=== PATIENT | female | born 1955 | race Caucasian/White ===

== ENCOUNTER 2016-03-27 11:24 | Inpatient (IN) | payer MEDICAID ==
[~2016-03-27] VITALS: Ht 167.6 cm; Wt 69.4 kg
[~2016-03-27 11:24] MED LIST: ALBUTEROL; BACTROBAN 22 GM22 GM TP; BOUDREAUXS113 GM TP; CLARITIN 10 MG10 MG PO; COGENTIN1 MG PO; DEPAKOTE ER500 MG PO; DUONEB 2.5-0.5 M3 ML INH; DUONEB 2.5-0.5 M3 ML NEB; FLORANEX PO; GEODON20 M1 IM; HALDOL DECONATE IM; HALDOL5 MG IM; LACTINEX C1 TAB.CHEW PO; LEVAQUIN500 MG PO; LITHIUM CARBON300 MG PO; PRINIVIL20 MG PO; PROVENTIL/2.5 MG/3 M INH; REQUIP0.25 MG PO; SYNTHROID50 MCG PO; TYLENOL325 MG PO; ZYPREXA20 MG PO
[2016-03-27 12:11] LABS: BASOPHILS 0.1 % (0.0-2.0); EOSINOPHILS 0.1 % (0-7); HEMATOCRIT 46.2 % (36.0-48.0); HEMOGLOBIN 15.3 g/dL (12-16); IMMATURE GRANULOCYTES 0.2 % (0-5); LYMPHOCYTES 17.9 % (15-50); MCH 27.3 pg (26.0-34.0); MCHC 33.1 g/dL (31.0-37.0); MCV 82.5 fL (80.0-100.0); MEAN PLATELET VOLUME 10.8 fL (7.4-10.4); MONOCYTES 6.5 % (2-11); NEUTROPHILS 75.2 % (40-80); PLATELET COUNT 173 10x3/uL (130-400); RDW 14.1 % (11.5-14.5); WBC 9.8 10x3/uL (4.8-10.8)
[2016-03-27 12:29] LABS: ALBUMIN 3.7 g/dL (3.4-5.0); ALKALINE PHOSPHATASE 103 U/L (46-116); ALT (SGPT) 33 U/L (10-68); CALC OSMOLALITY 283 mosm/kg (275-300); CALCIUM 10.1 mg/dL (8.5-10.1); CARBON DIOXIDE 29.5 mmol/L (21.0-32.0); CHLORIDE - SERUM 102 mmol/L (98-107); CREATININE - SERUM 0.8 mg/dL (0.6-1.3); GLUCOSE 99 mg/dL (74-106); POTASSIUM - SERUM 3.3 mmol/L (3.5-5.1); PROTEIN - SERUM 6.8 g/dL (6.4-8.2); SODIUM 141 mmol/L (136-145); UREA NITROGEN 22 mg/dL (7-18); eGFR NON AFRICAN AMERICAN 77 mL/min (90-120)
[2016-03-27 12:30] LABS: VALPROIC ACID (DEPAKOTE) < 3.0 ug/mL (50.0-100.0)
[2016-03-27 12:35] LABS: APPEARANCE CLEAR (CLEAR); BACTERIA FEW /hpf (NONE SEEN); BILIRUBIN NEGATIVE (NEGATIVE); COLOR YELLOW (YELLOW); EPITHELIAL CELLS 0-5 /hpf (0-5); GLUCOSE NEGATIVE (NEGATIVE); KETONE SMALL mg/dL (NEGATIVE); LEUKOCYTE ESTERASE TRACE (NEGATIVE); MUCUS >1+ /lpf (NONE SEEN); NITRITE NEGATIVE (NEGATIVE); PROTEIN 1+ mg/dL (NEGATIVE); SPECIFIC GRAVITY 1.015 (1.005-1.020); UROBILINOGEN NORMAL (NORMAL); WHITE CELLS - URINE 0-5 /hpf (0-5)
[2016-03-27 12:39] LABS: UDS - AMPHET NEGATIVE QUAL (NEGATIVE); UDS - BARB POSITIVE QUAL (NEGATIVE); UDS - BENZO NEGATIVE QUAL (NEGATIVE); UDS - COCAINE NEGATIVE QUAL (NEGATIVE); UDS - METH NEGATIVE QUAL (NEGATIVE); UDS - OPIATE NEGATIVE QUAL (NEGATIVE); UDS - PCP NEGATIVE QUAL (NEGATIVE); UDS - THC NEGATIVE QUAL (NEGATIVE)
[2016-03-28] VITALS (11 sets, daily range): BP systolic 107–148; BP diastolic 43–90; Ht 167.6 cm; Wt 69.4 kg
--- NOTE | 2016-03-28 03:21 | NUR ---
NURSE ROUNDS 19:30 - PT SITTING ON SIDE OF BED, AWAKE, ALERT, CONFUSED, DEMONSTRATES PARANOIA AND DEFENSIVENESS. PT IS DICTATIVE AND REFUSES ANY ASSISTANCE AT THIS TIME. PT REFUSES TO USE O2 VIA NC, AND IS BELIGERENT WHEN APPROACHED. WILL MONITOR CLOSELY.
[2016-03-28] MEDS ORDERED: MYCOSTATIN CREA15 GM TOPICAL (03:54)
[2016-03-28 05:24] LABS: BASOPHILS 0.2 % (0.0-2.0); EOSINOPHILS 0.2 % (0-7); HEMATOCRIT 42.3 % (36.0-48.0); HEMOGLOBIN 13.7 g/dL (12-16); IMMATURE GRANULOCYTES 0.2 % (0-5); MCH 26.4 pg (26.0-34.0); MCHC 32.4 g/dL (31.0-37.0); MCV 81.7 fL (80.0-100.0); MONOCYTES 9.8 % (2-11); NEUTROPHILS 58.6 % (40-80); PLATELET COUNT 180 10x3/uL (130-400); RBC 5.18 10x6/uL (4.00-5.40); WBC 9.8 10x3/uL (4.8-10.8)
[2016-03-28 05:31] LABS: CALCIUM 9.3 mg/dL (8.5-10.1); CARBON DIOXIDE 27.8 mmol/L (21.0-32.0); CHLORIDE - SERUM 99 mmol/L (98-107); CREATININE - SERUM 0.6 mg/dL (0.6-1.3); GLUCOSE 110 mg/dL (74-106); SODIUM 137 mmol/L (136-145); eGFR NON AFRICAN AMERICAN > 90 mL/min (90-120)
[2016-03-28 05:42] LABS: CALC OSMOLALITY 275 mosm/kg (275-300); POTASSIUM - SERUM 2.6 mmol/L (3.5-5.1); UREA NITROGEN 15 mg/dL (7-18)
--- NOTE | 2016-03-28 05:49 | NUR ---
PT HAS BEEN UNCOOPERATIVE MOST OF THIS SHIFT, HAS WANDERED OUT OF HER ROOM X 2, HAS VERBALIZED PHYSICAL THREATS, HAS ACCUSED MY PT ACROSS THE BOYER FROM HER OF CALLING HER ON THE PHONE, PT HAS HALLUCINATED BY STATING THERE ARE PEOPLE IN HER BATHROOM, THEREFORE SHE REFUSES TO USE IT. I DID HAVE TO ADMINISTER GEODON 20MG IM, AND PT IS CURRENTLY RESTING COMFORTABLY, IN NO ACUTE DISTRESS. PT HAS REQUIRED ONE ON ONE SUPERVISION FOR MOST OF THIS SHIFT. WILL CONTINUE TO MONITOR CLOSELY.
--- NOTE | 2016-03-28 07:29 | NUR ---
PT SITTING UP ON SIDE OF THE BED DENIES NEEDS WILL CONT TO MONITOR.
--- NOTE | 2016-03-28 08:02 | NUR ---
HAD TO CALL SHERWIN GÓMEZ FOR PT WANDERING. PT WAS FOUND IN HALLWAY. PT IS IN HER ROOM WITH STREET LIGHT SERVICER HELPER SITTING WITH HER FOR NOW. I HAVE PAGED DR MOYER TO SEE ABOUT WHAT WE NEED TO DO, MAYBE A ORESTES BED?
--- NOTE | 2016-03-28 08:35 | NUR ---
DR MOYER CALLED BACK. ORDERS PLACED. PT TO BE MOVED TO ROOM 5 AND PLACED IN LINDSAY BED.
--- NOTE | 2016-03-28 09:04 | NUR ---
PT MOVED TO ROOM 2105 IN ORESTES BED. PT SLEEPING AT THE MOMENT. NOT GIVING MEDS AT THIS TIME, DUE TO PT BEING COMBATIVE AND SLEEPING. WILL GIVE WHEN PT WAKES UP.
--- NOTE | 2016-03-28 13:52 | NUR ---
PT HAS BEEN VERY COMBATIVE ALL DAY LONG. SHE HAS BEEN HITTING NURSING STAFF, YELLING, CUSSING. AND THREATENING UPON ANYONE WHO ENTERS HER ROOM. TREY SUPPLY ANALYST GOT A CALL BACK FROM PT SISTER WHO SAID THAT PT WAS ONCE AND TRIED TO KILL HER WITH A PAIR OF SCISSORS. I HAD PUT IN AN ORDER EARLIER TO DIETARY TO ONLY BRING PT FINGER FOODS WITH NO SILVERWARE AT ALL FOR FEAR THAT SHE WOULD HURT SOMEONE BECAUSE PT HAS BEEN SO VIOLENT TODAY. I ALSO CALLED DOWN AND THEY SAID THEY WROTE IT DOWN ALSO. ANY TIME ANYONE OPENS THE ORESTES BED PT GRABS YOU AND CLENCHES DOWN GRIPPING DOWN VERY HARD. WHEN TAKING THE PT TO THE BATHROOM, SHE ESCAPED FROM THE ROOM AGAIN. WE HAD TO ORI HER DOWN THE BOYER AND WHEN WE TRIED TO BRING HER BACK TO THE ROOM SHE SHOVED ONE OF OUR STAFF MEMBERS. PT HAS BEEN CALLING ME AND OTHER STAFF MEMBERS THAT ARE HELPING ME WITH CARE OF PT THE "THREE STOOGES...MIDGETS...BITCHES..." HAS TOLD US TO "GET THE F OUT OF HER ROOM" "IM GOING TO KILL ALL OF YOU BITCHES, GET OUT OF HERE!!"
--- NOTE | 2016-03-28 13:53 | NUR ---
RECEIVED A CALL FROM PATIENT'S SISTER ELODIA. SISTER EXPLAINED TO THIS NURSE, THE PATIENT HAS NOT BEEN CONSISITED IN TAKING HER PSYCH MEDS ALLHER LIFE. SISTER DOES STATE PATIENT CAN BE VERY AGGRESSIVE AND ALSO THREATENS OTHERS. SISTER ALSO STATES [facility] ASKED SISTER IF SHE COULD COME TO STAY WITH PATIENT. SISTER STATES NO BECAUSE SHE IS OUT OF STATE PATIENT REMAINS IN ORESTES BED BUT HAS BEEN OBSERVED BY STAFF TRYING TO UNZIP THE BED. PATIENT HAS BEEN UP AND OUT OF BED FOR TOLIETING BUT HAS ELOPED FROM ROOM. WHEN STAFF MEMBERS HAVE TRIED TO ESCORT PATIENT BACK TO ROOM, SHE SHOVES THEM. COMMISSIONED SECURITY OFFICER AND Adele FELIPE ACNO NOTIFIED OF ISSUES.
--- NOTE | 2016-03-28 14:57 | NUR ---
MARIZOL AND ZACK CAME TO SEE PT. PT WAS STILL COMBATIVE IN THE ORESTES BED. SHE WAS KICKED THE MESH AND KICKED A STAFF MEMBER THROUGH THE MESH OF THE ORESTES BED. MARIZOL JOHNSON WANTED US TO PAGE DR SALINAS AND SEE IF HE WAS OK WITH PT STAYING HERE ON THE FLOOR OR IF HE WANTED PT MOVED TO A MORE SECURE AREA IN THE ICU. CALLED DOWN TO INTERMEDIATE TO GET DR SALINAS PAGER NUMBER. INTERMEDIATE STAFF WOULD NOT GIVE ME DR NUMBER AND SAID THEY WOULD PAGE HIM FOR ME. THEY CALLED BACK AND SAID THAT WHATEVER HE PUT IN HIS NOTE WOULD BE WHAT HE WANTED TO BE FOLLOWED. I TOLD THEM THAT I DID NOT EVEN GET TO ASK THE DR WHAT I NEEDED TO ASK HIM. THEY STILL WOULD NOT GIVE ME HIS PAGER NUMBER. DR SALINAS'S PAGER NUMBER IS NO WHERE LISTED IN OUR DR'S NUMBER BOOK. THEY ASKED ME WHAT THE SITUATION WAS AND I TOLD THEM WHAT WAS GOING ON WITH THE PT AND THAT MARIZOL WANTED TO KNOW HIS RECOMMENDATION ON WHETHER OR NOT IF PT NEEDS TO STAY HERE IN ORESTES ON FLOOR OR GO TO THE UNIT FOR A MORE OF A ONE ON ONE. STILL AWAITING A CALL BACK ON WHAT TO DO.
--- NOTE | 2016-03-28 15:25 | NUR ---
Patient Name: CEZAR BIANCHI Admission Status: ER Accout number: [id number] Admission Date: 03-27-2016 : 1955 Admission Diagnosis: Attending: ZOZY Current LOS: 1 Anticipated DC Date: Planned Disposition: Nursing Facility [facility] Primary Insurance: MEDICAID [place] PLANNED EXTERNAL PROVIDER: [facility], [facility] BED Discharge Planning Comments: * Is the patient Alert and Oriented? No 0 * How many steps to enter\exit or inside your home? NONE 0 * PCP DR. PETERSON 0 * Pharmacy [facility] 0 * Preadmission Environment Financial Sales Manager [facility] 0 * Facility Name [facility] 0 * ADLs Partial Dependent 0 * Partial ADLs (Assistance needed) Ambulation Medication Management 0 * Equipment Other 0 * Other Equipment ALL EQUIPMENT PROVIDED BY [facility] 0 * List name and contact numbers for known caregivers / representatives who currently or will assist patient after discharge: ELODIA PEREZ, , 0 * Community resources currently utilized None 0 * Please name any agencies selected above. NONE 0 * Additional services required to return to the preadmission environment? Yes * Can the patient safely return to the preadmission environment? Yes 0 * Has this patient been hospitalized within the prior 30 days at any hospital? No 0 CM ATTEMPTED TO MEET WITH PT IN ROOM. PT IMMEDIATLY ASKED FOR CIGARETTE UPON CM ENTRY INTO ROOM. CM EXPLAINED TO PT SHE WAS IN A HOSPITAL AND THAT THERE WAS NO SMOKING ON HOSPITAL PROPERTY. PT STATES SHE KNOWS WHERE SHE IS AT AND SHE HAS ALWAYS BEEN ALLOWED TO SMOKE HERE. PT STATES SHE KNOWS AND WHEN CM OBSERVED THAT CM HAS NOT EVER MET PT BEFORE, PT REPORTS THAT IF SHE IS NOT GIVEN A CIGARETTE, SHE WILL KILL EVERYONE HERE AND CONTINUED WITH YELLING CURSEWORDS AT . CM LEFT ROOM. CM NOTIFIED BEDSIDE NURSE. CM REVIEWED CHART WHICH INDICATED PT IS RESIDENT AT [facility] WITH KNOWN MENTAL DISORDER AND HAVING NO POWER OF ENGINEERING AND SCIENTIFIC PROGRAMMER ASSIGNED TO ANOTHER PERSON. CM CALLED HILLARY CLINICAL LIASON OF [facility], . CM ASKED FOR VERIFICATION OF BED STATUS AT [facility] AND WHO FACILITY HAS LISTED, IF ANYONE, PT'S POWER OF ENGINEERING AND SCIENTIFIC PROGRAMMER. FOR DISCHARGE BACK TO [facility], NURSE REPORT TO BE CALLED TO [facility] AT [phone]; FAX DISCHARGE TO [facility] AT [phone]. PT WILL MOST LIKELY REQUIRE AMBULANCE TRANSPORT. Hyperion Administrator: Fred Catalan
--- NOTE | 2016-03-28 15:39 | NUR ---
SNF SINCERE GOT A HOLD OF DR SALINAS HE SAID TO TRANSFER PT TO ICU SINCE SHE IS SO AGGRESSIVE. TRANSFERING TO 2314. BOGDAN HERE AND AGREES. CALLING REPORT AND TRANSFERING.
--- NOTE | 2016-03-28 15:45 | NUR ---
PT HAS REFUSED TO TAKE ANY MEDICATIONS ALL DAY TODAY. I HAVE ONLY BEEN ABLE TO GIVE HER IM INJECTIONS IF NEEDED AND SHE HAS BEEN DRINKING HER ORAL POTASSIUM MIXED IN APPLE JUICE.
--- NOTE | 2016-03-28 16:09 | NUR ---
Received patient via juan david bed. Patient currently awake and alert. Conversation does not make sense, stating she wants to to go [employer] and get a ball cap.
--- NOTE | 2016-03-28 17:10 | NUR ---
Patient gotten out of Nolan bed and up to bedside commode. Pt ambulated well. Pt connected to monitors for vitals. VSS. Sinus tach on CM. Patient then given dinner tray in juan david bed. Ate 80% of dinner, then demanded that I take the tray. Pt attempted to kick and told to stop. Pt allowed me to grab tray and give her some tea. Pt quiet at this time.
--- NOTE | 2016-03-28 18:07 | NUR ---
in to see patient. Pt allowed her to auscultate lung sounds from the back. Patient paranoid that we are going to harm her and is making demands.
--- NOTE | 2016-03-28 18:53 | NUR ---
histology technician in room to draw repeat K+. I stayed with tech, pt tolerated well. Remains in Harris bed.
--- NOTE | 2016-03-28 19:30 | NUR ---
ASSESSMENT COMPLETE. S1S2. PT IN ORESTES BED. PT CONFUSED; FOLLOWS COMMANDS. RESTLESS BEHAVIOR; DEMANDING. PERRLA. PT REFUSED TO WEAR ECG MONITORING. EVERYTIME THIS NURSE APPLIED LEADS; THE PT WOULD RIP THEM OFF.
--- NOTE | 2016-03-28 20:45 | NUR ---
PT TOOK MEDICATIONS WITHOUT DIFFICULTY. OFFERED PT A VINICIO'S PEANUT BUTTER CUP IN EXCHANGE FOR TAKING HER MEDICAITON. PT AGREED; COOPERATIVE. PT ALLOWED THIS NURSE TO GIVE LOVENOX INJ. AND HANG IV MEDICATIONS. PLEASANT BEHAVIOR.
--- NOTE | 2016-03-28 22:25 | NUR ---
PT AMBULATED TO BEDSIDE COMMODE; STEADY GAIT. AFTER USING THE COMMODE. PT ATTEMPTED TO EXIT THE ROOM; STATING "I WANT TO GO SMOKE ON THE PATIO". PT ASSISTED BACK TO BED; EDUCATED PT ON SAFTEY AND REORIENTED.
--- NOTE | 2016-03-28 23:10 | NUR ---
REASSESSMENT COMPLETE. NO CHANGES FROM PREVIOUS ASSESSMENT. WILL CONTINUE TO MONITOR.
[2016-03-29] VITALS (11 sets, daily range): BP systolic 88–142; BP diastolic 60–86
--- NOTE | 2016-03-29 03:00 | NUR ---
REASSESSMENT COMPLETE. NO CHANGES FROM PREVIOUS ASSESSMENT.
--- NOTE | 2016-03-29 03:23 | NUR ---
ATTEMPTED TO GIVE PT BATH. PT REFUSED.
[2016-03-29 04:01] LABS: BASOPHILS 0.1 % (0.0-2.0); EOSINOPHILS 0.6 % (0-7); HEMATOCRIT 43.4 % (36.0-48.0); HEMOGLOBIN 13.9 g/dL (12-16); IMMATURE GRANULOCYTES 0.1 % (0-5); LYMPHOCYTES 31.4 % (15-50); MCH 26.5 pg (26.0-34.0); MCV 82.7 fL (80.0-100.0); MEAN PLATELET VOLUME 10.6 fL (7.4-10.4); MONOCYTES 9.5 % (2-11); NEUTROPHILS 58.3 % (40-80); PLATELET COUNT 172 10x3/uL (130-400); RBC 5.25 10x6/uL (4.00-5.40); RDW 14.2 % (11.5-14.5); WBC 7.3 10x3/uL (4.8-10.8)
--- NOTE | 2016-03-29 04:01 | NUR ---
PT STARTED HAVING SEIZURE LIKE ACTIVITY LASTING 90 SECONDS. JERKING MOTIONS OF THE ARMS; LEGS. MOUTH CLENCHED. UNRESPONSIVE TO VERBAL STIMULI OR STERNAL RUB. SEIZURE LIKE ACTIVITY STARTED DURING THE PROCESS OF COMPLETE BATH. POST ICTAL THE PT WAS CONFUSED AND AGGRESSIVE. PT BEGAN TO SWING FIST TOWARDS THIS NURSE AND BEGAN YELLING. PT WAS CALMED DOWN AND ASSISTED BACK TO THE ORESTES BED. WILL CONTINUE TO MONITOR.
[2016-03-29 04:19] LABS: CALC OSMOLALITY 288 mosm/kg (275-300); CALCIUM 9.2 mg/dL (8.5-10.1); CARBON DIOXIDE 31.2 mmol/L (21.0-32.0); CHLORIDE - SERUM 107 mmol/L (98-107); CREATININE - SERUM 0.6 mg/dL (0.6-1.3); GLUCOSE 110 mg/dL (74-106); MAGNESIUM - SERUM 1.5 mg/dL (1.8-2.4); PHOSPHOROUS 3.2 mg/dL (2.5-4.9); POTASSIUM - SERUM 3.1 mmol/L (3.5-5.1); SODIUM 145 mmol/L (136-145); UREA NITROGEN 10 mg/dL (7-18); eGFR NON AFRICAN AMERICAN > 90 mL/min (90-120)
--- NOTE | 2016-03-29 05:33 | NUR ---
PT REFUSED TO DRINK POTASSIUM. STATING IT WAS POISON, ALLERGIC, AND BURNED TONGUE.
--- NOTE | 2016-03-29 10:20 | NUR ---
Patient Name: CEZAR BIANCHI Encounter No: [id number] : 1955 Primary Insurance: MEDICAID [place] Anticipated DC Date: Planned Disposition: Nursing Facility [facility] Cert External Planned Provider: [facility]M [facility] MEDICAID BED DCP follow-up note: YULISA RECEIVED CALL FROM HILLARY, CLINICAL LIAISON FOR [facility], , WHO REPORTED THAT PT HAS BEEN IN [facility] SINCE 2011 AND WAS RECEIVED BY DAVON FROM [facility]. [facility] WAS WANTING [facility] TO TAKE PT. HILLARY REPORTS PT SIGNS FOR HERSELF AND HAS NO POWER OF CLINICAL APPLICATION MANAGER ASSIGNED. YULISA NOTIFIED HILLARY OF PT'S TRANSFER TO ICU AND ASKED IF PT HAD SIGNED ANY CONSENTS INDICATING WILLINGNESS TO GO TO [facility] AND OBSERVED THAT PT IS NOT ABLE TO SIGN CONSENTS AT THIS TIME. HILLARY WILL CHECK AND LET CM KNOW. HILLARY DID RECEIVE CLINICAL UPDATE YESTERDAY THAT CM FAXED. PT IS FROM [facility] AND DAVON IS WANTING PT TO GO TO [facility] FOR TALKBACK HOST CARE, IT IS UNCLEAR IF PT HAS SIGNED ANY CONSENTS AT [facility] FOR INFORMATION TO BE SHARED FOR FACILITY TRANSFER TO [facility]. HILLARY, CLINICAL LIAISON FOR [facility], IS CHECKING ON THIS. CM TO CONTINUE TO FOLLOW AND ASSIST. Fred Catalan, CASE MANAGEMENT
--- NOTE | 2016-03-29 18:21 | NUR ---
0715-RECIEVED COMBATIVE-NOT ABLE TO APPROACH FOR ASSESSMENT-MACHINE ADJUSTER LEADER AT BEDSDE-NOT ABLE TO APPROACH FOR EEG PROCEDURE-CURSATIVE LANGUAGE 0815-WITH ASSIST OF 2 RN -ABLE TO GIVE HALDOL AND SANDER ROSS L VENTRAL 0915-ABLE TO ASSIST PT TO BEDSIDE COMMODE AND CHAIR-AGREED TO TAKE AM MEDS WITH DR JONES ONLY 1050-PT REMOVED HOSPITAL GOWN AND PUT OWN CLOTHING ON-RETURNED TO CHAIR-REFUSING BP CUFF-STATED -YOU AIN'T BREAKING MY F-ARM 1330-LUNCH TRAY TAKEN-SANDER ROSS GIVEN-R UPPER ARM 1500-PT APPEARS MORE COMPLIANT LESS AGRESSIVE-ALLOWED BP CUFF BACK ON -NOT ABLE TO REMOVE SHIRT FOR ECG PADS 1630-REMAINS UP IN CHAIR-MOVED OUT ORESTES BED AND PLACED HOSPITAL BED IN RM WATCHING TV--KBR[facility]
--- NOTE | 2016-03-29 20:00 | NUR ---
2000: Pt rec'd sitting up in chair. Pt eyes are open and pupils KOREY+ bilat. Pt answers most questions. Pt is not oriented to place or reason for admission. Provided water and cranberry juice for patient as per request. Pt refuses to wear BP cuff or Telem. Per previous report; pt becomes aggitated if insist on ICU monitorring equipment. Pt did allow RN to take VS. Asked pt if she would like to lay in bed and pt states; "NO." Pt breathing reulgar and even with SPO2 94% HR 106 regular with auscultation. Pt has occasional non productive cough. ABD soft NT BS active x4. Pt denies difficulty with elimination. Attempted to discuss fall risk with patient, but patient becomes aggitated and stands up and demomstativley states she will not be jailed.
--- NOTE | 2016-03-29 21:00 | NUR ---
2100: Reviewed patients medications with her at this time. Pt accepts some, but not others (see emar) Pt oriented to person and time, but not place. Pt states she has been here for 6 years. Pt remains sitting up in chair at this time. Pt able to swallow without difficulty. Left arm PIV flushed at this time and pt allowed Rocephin to be admin.
--- NOTE | 2016-03-29 22:00 | NUR ---
2200: Pt sleeping in chair. Pt easily arousable to verbal, but refuses to get into bed. Pt states; "NO!" Pt remains sitting up in chair at this time. Calmed patient and reassured. Pt glaring at staff and visibly agitated, but calmed quickly.
[2016-03-30] VITALS: BP 103/67
--- NOTE | 2016-03-30 00:45 | NUR ---
0045: Pt up at this time. Pt confused. Not oriented to place or time. Pt cooperative and follows commands though. Verbal reorientation unsuccessful. Pt directed to bed at this time without difficulty. Pt still refuses ICU monitor equipment, but allowed RN to take current VS and remove.
--- NOTE | 2016-03-30 03:15 | NUR ---
0315: Pt up OOB to chair. Pt requested toothbrush, toothpaste, and coffee. Pt oriented to person and time (night time). Pt given verbal reorientation to place and verbally repeated.
--- NOTE | 2016-03-30 05:00 | NUR ---
0500: Pt remains up in chair with eyes open. Pt answers questions, but not always appropriate. Answers deviate from conversation subject to other subjects, but pt is easily re-directed. Pt denies pain or needs at this time.
[2016-03-30 06:00] VITALS: BP 111/56
[2016-03-30 06:51] LABS: BASOPHILS 0.2 % (0.0-2.0); EOSINOPHILS 0.4 % (0-7); HEMATOCRIT 49.7 % (36.0-48.0); HEMOGLOBIN 15.9 g/dL (12-16); IMMATURE GRANULOCYTES 0.2 % (0-5); MCV 84.5 fL (80.0-100.0); MEAN PLATELET VOLUME 10.6 fL (7.4-10.4); MONOCYTES 6.7 % (2-11); NEUTROPHILS 57.5 % (40-80); PLATELET COUNT 202 10x3/uL (130-400); RBC 5.88 10x6/uL (4.00-5.40); RDW 14.4 % (11.5-14.5)
[2016-03-30 07:06] LABS: WBC 9.3 10x3/uL (4.8-10.8)
[2016-03-30 07:11] LABS: ANION GAP 13.9 mmol/L (8-16); CALCIUM 10.2 mg/dL (8.5-10.1); CARBON DIOXIDE 31.4 mmol/L (21.0-32.0); MAGNESIUM - SERUM 1.8 mg/dL (1.8-2.4); PHOSPHOROUS 3.8 mg/dL (2.5-4.9); POTASSIUM - SERUM 3.3 mmol/L (3.5-5.1)
[2016-03-30 07:12] LABS: CREATININE - SERUM 0.9 mg/dL (0.6-1.3)
[2016-03-30 15:00] VITALS: BP 86/70
--- NOTE | 2016-03-30 18:04 | NUR ---
0715-RECIEVED AWAKE AND ALERT-WANDERING FH-NXCFLS-IAK ABLE TO STATE LOCATION-STATES WANTS TO GO BACK TO RM-FLIGHT OF IDEAS NOTED-MULTIPLE TOPICS AND DIFFICULT TO FOLLOW PT CONVERSATION 914 BREAKFEST TRAY TAKEN-ABLE TO TAKE AM MEDS -REFUSED NICOTINE PATCH-STATED WAS POISON-NOT ABLE TO REMOVE PREVIOUS DAY PATCH 1215-FOUND PT ATTEMPTING TO LEAVE UNIT-EASILY REDIRECTED TO RM-AGREED TO SANDER Loo UPPER ARM FOR STRONG ANXIETY/AGITATION 1615-READING MAGAZINE- 1715-DINNER TRAY TAKEN-PT CLEANED ROOM SELF AND DID OWN GROOMING-REFUSED ASSIST
[2016-03-30 19:54] VITALS: BP 117/63
--- NOTE | 2016-03-30 20:00 | NUR ---
2000: Pt remains confused; not oriented to time or place. Verbal reorientation unsuccessfull at this time. Pt cooperative and follows commands, but refuses to wear telemetry, BP cuff. Allows to check then pt removes. Pt request to smoke. Offered Nicotine patch. Pt states that she does not want patch and refuses placement. Pt moves around room. Attempted to direct to bed, but pt stongly states she does not want in bed. Pt easily calmed via verbal and redirected in conversation. Provided Dr. Stacy and Tea per request. Pt smiled and thanked RN.
--- NOTE | 2016-03-30 21:00 | NUR ---
2100: Pt took scheduled medications with lengthy prompting and directing. Pt confused; not oriented to place or time. Pt with occasional aggression during conversations. Pt rambiling at times; "most the nurses are prostitutes, those girls out there don't work here", and "Is anyone else locked up and not allowed to smoke?" Language tone changes frequently from angry to conversational.
--- NOTE | 2016-03-30 23:31 | NUR ---
2330: Pt resting with eyes closed at this time. Pt remains up in chair and refuses to lay in bed.
[2016-03-31 02:00] VITALS: BP 128/86
--- NOTE | 2016-03-31 02:00 | NUR ---
0200: Pt awake and ambulating in room. Pt does not leave room and asked for RN. Pt redirected to chair and is conversive. Pt reading magazine. VS done.
--- NOTE | 2016-03-31 03:45 | NUR ---
0345: Pt sitting up in chair with eyes closed. Open to verbal and answers questions. Pt remains LOCx2 not oriented to place. Verbal reorientation given at this time.
--- NOTE | 2016-03-31 06:30 | NUR ---
0630: Pt sitting up in chair with eyes open. Pt remains decerased LOC not oriented to place or time.
[2016-03-31 06:40] VITALS: BP 135/77
[2016-03-31 08:00] VITALS: BP 132/78
--- NOTE | 2016-03-31 13:57 | NUR ---
0715-PT REFUSING CARDIAC MONITORTOR-AGREED TO TEMPERATURE CHECK-REFUSED PHYSICAL ASSESSMENT-STATED YOU DON'T NEED TO BE DOING THAT-REMAINS SITTING UP IN CHAIR-STATES WILL GO IN THAT BED-YOU WILL LOCK ME UP AGAIN-STRONGLY REASSURED THAT WOULD NOT HAPPEN--PT ASKED IF COULD BE TAKEN OUT TO SMOKE-INFORMED NO--OFFERED NICOTINE PATCH-PT STATED DO NOT WANT THAT POISON-WILL NOT ALLOW NURSE TO REMOVE PREVOUS DAY ONE 929-FRIDAY PAPER AND MAGAZINES BROUGHT FOR PT 1045-DR PETERSON IN UNITUNIT-AWARE REFUSES LAB DRAWS AND PHYSICAL ASSESSMENT
--- NOTE | 2016-03-31 14:40 | NUR ---
PT SEVERE AGITATION -STARTING TO CRY-WAANTED TO USE OUR LAUNDRY SERVICE FOR CLOTHING-ENCOURAGED HER TO ACCEPT HALDOL MED AND GEODON FOR NERVES-PT AGREEABLE -R ARM DELTOID 5MG HALDOL IM GIVEN-TOLERATED WELL-ACCEPTED GEODON IM-AND THEN STOPPED-ESTIMATED 5MG RECIEVED AND PROCEDURE STOPPED WITH PT REQUEST-STATING THAT CAIN
[2016-03-31 18:00] VITALS: BP 113/58
--- NOTE | 2016-03-31 18:30 | NUR ---
1500-APPEARS ASLEEP UP IN CHAIR 1814-AGREES TO BLOOD PRESSURE CHECK -REFUSES BELT CLEANER AND PHYSICAL ASSESSMENT
[2016-03-31 19:00] VITALS: BP 128/54
--- NOTE | 2016-03-31 19:30 | NUR ---
1930: ASSESSMENT COMPLETE. S1S2. SINUS TACH SHOWING ON MONITOR. RR CLEAR; NON LABORED. PT CONFUSED TO TIME; PLACE; SITUATION. STEADY GAIT. PERRLA. RADIAL AND PEDAL PULSES PALPATED. 2099: PT TOOK MEDS WITHOUT DIFFICULTY. STAYED IN ROOM WHILE IV ABX INFUSED. 5: REASSESSMENT COMPLETE. NO CHANGES FROM PREVIOUS ASSESSMENT
--- NOTE | 2016-04-01 01:30 | NUR ---
PT RESTING IN CHAIR. PT STARTED SPITTING IN FLOOR. REORIENTED PT. PT REQUESTED TO BE TAKEN OUTSIDE.
--- NOTE | 2016-04-01 03:00 | NUR ---
REASSESSMENT COMPLETE. NO CHANGES FROM PREVIOUS ASSESSMENT.
[2016-04-01 06:52] LABS: ALBUMIN 3.1 g/dL (3.4-5.0); ALKALINE PHOSPHATASE 90 U/L (46-116); ALT (SGPT) 31 U/L (10-68); CALC OSMOLALITY 290 mosm/kg (275-300); CALCIUM 10.1 mg/dL (8.5-10.1); CARBON DIOXIDE 31.1 mmol/L (21.0-32.0); CHLORIDE - SERUM 104 mmol/L (98-107); CREATININE - SERUM 0.7 mg/dL (0.6-1.3); GLUCOSE 106 mg/dL (74-106); MAGNESIUM - SERUM 1.6 mg/dL (1.8-2.4); PHOSPHOROUS 3.1 mg/dL (2.5-4.9); POTASSIUM - SERUM 3.6 mmol/L (3.5-5.1); PROTEIN - SERUM 6.2 g/dL (6.4-8.2); SODIUM 146 mmol/L (136-145); UREA NITROGEN 12 mg/dL (7-18); eGFR NON AFRICAN AMERICAN 90 mL/min (90-120)
[2016-04-01 06:53] LABS: BASOPHILS 0.2 % (0.0-2.0); EOSINOPHILS 0.7 % (0-7); HEMOGLOBIN 14.7 g/dL (12-16); IMMATURE GRANULOCYTES 0.2 % (0-5); LYMPHOCYTES 49.8 % (15-50); MCH 26.7 pg (26.0-34.0); MCHC 31.3 g/dL (31.0-37.0); MCV 85.5 fL (80.0-100.0); MEAN PLATELET VOLUME 11.1 fL (7.4-10.4); MONOCYTES 7.6 % (2-11); NEUTROPHILS 41.5 % (40-80); PLATELET COUNT 211 10x3/uL (130-400); RDW 14.2 % (11.5-14.5)
--- NOTE | 2016-04-01 10:04 | NUR ---
NUTRITION MONITORING & EVAL CHART REVIEWED, PT VISIT. PT STATES SHE DOES NOT EAT BREAKFAST. STATES SHE WILL EAT LUNCH AND DINNER TODAY. RD FOLLOWING
--- NOTE | 2016-04-01 10:38 | NUR ---
PT SITTING UP IN CHAIR, CONFUSED TO PLACE AND TIME. BREAKFAST TRAY GIVEN AND PT ATE VERY LITTLE. DID TAKE P.O. MEDS W/O PROBLEMS.
[2016-04-01] MEDS ORDERED: Rocephin INJ IM (10:50)
--- NOTE | 2016-04-01 12:20 | NUR ---
1220-CALLED [facility] TO GIVE REPORT RE: DC BACK TO FACILITY. [facility] STAFF REPORT THAT CM [facility]. CM NOTIFIED.
[2016-04-01 13:00] VITALS: BP 137/78
--- NOTE | 2016-04-01 13:06 | NUR ---
3573 PRIMARY NURSE ADVISED CM THAT SHE HAD RECEIVED D/C BACK TO FACILITY ORDER. SHE CALLED THE FACILITY AND S/W HILLARY, THE CLINICAL LIAISON. CM SPOKE W/ HILLARY. FAXED CLINICAL UPDATE AND DISCHARGE ORDERS. AWAITING CB REGARDING TO WHICH FACILITY PATIENT WILL BE DISCHARGED, [facility] OR [facility].
--- NOTE | 2016-04-01 15:37 | NUR ---
1537- REPORT CALLED TO DAX AT [facility].
--- NOTE | 2016-04-01 16:15 | NUR ---
1615- PT REFUSING TO GO WITH THE STAFF FROM [facility]. CALLED AND REPORTED TO DR PETERSON AND TO [facility] STAFF AT [facility]. GEODON GIVEN ORDERED.
== END 2016-04-01 17:42 | DRG 190 ==
LOC: D.ER 11:24 → D.M2 18:09 → D.ICU 18:09 → D.M2 03-28 09:05 → D.ICU 03-28 16:01
PROVIDERS: Family Medicine; ADMIT Family Medicine
DX: J44.0 Chronic obstructive pulmonary disease with (acute) lower respiratory infection (principal); J18.9 Pneumonia, unspecified organism; F20.89 Other schizophrenia; F03.91 Unspecified dementia, unspecified severity, with behavioral disturbance; J44.1 Chronic obstructive pulmonary disease with (acute) exacerbation; E03.9 Hypothyroidism, unspecified; F31.9 Bipolar disorder, unspecified; R25.1 Tremor, unspecified; G40.409 Other generalized epilepsy and epileptic syndromes, not intractable, without status epilepticus; E87.6 Hypokalemia; E87.8 Other disorders of electrolyte and fluid balance, not elsewhere classified; I10 Essential (primary) hypertension; Z72.0 Tobacco use

== ENCOUNTER 2016-09-04 09:10 | Emergency (ER) | payer MEDICAID ==
[2016-03-28 11:03] VITALS: BMI 24.7
[~2016-09-04 09:10] MED LIST changes: +MYCOSTATIN CREA15 GM TOPICAL; +Rocephin INJ IM
== END 2016-09-04 13:16 | disposition home or self-care (01) ==
LOC: D.ER 09:10
DX: S00.03XA Contusion of scalp, initial encounter (principal); W19.XXXA Unspecified fall, initial encounter; J44.9 Chronic obstructive pulmonary disease, unspecified; E03.9 Hypothyroidism, unspecified

== ENCOUNTER 2016-12-29 19:52 | Inpatient (IN) | payer MEDICAID ==
[~2016-12-29] VITALS: Ht 167.6 cm; Wt 84.0 kg
[~2016-12-29 19:52] MED LIST changes: +BENZTROPINE MESY1 MG PO; -COGENTIN1 MG PO
[2016-12-29 21:38] LABS: BASOPHILS 0.4 % (0-2); EOSINOPHILS 0.4 % (0-7); HEMATOCRIT 43.2 % (36.0-48.0); HEMOGLOBIN 13.5 g/dL (12-16); IMMATURE GRANULOCYTES 1.2 % (0-5); LYMPHOCYTES 25.9 % (15-50); MCH 26.7 pg (26.0-34.0); MCHC 31.3 g/dL (31.0-37.0); MCV 85.5 fL (80.0-100.0); MEAN PLATELET VOLUME 9.5 fL (7.4-10.4); MONOCYTES 15.4 % (2-11); NEUTROPHILS 56.7 % (40-80); PLATELET COUNT 96 10x3/uL (130-400); RBC 5.05 10x6/uL (4.00-5.40); RDW 15.2 % (11.5-14.5)
[2016-12-29 21:49] LABS: ALKALINE PHOSPHATASE 60 U/L (46-116); ALT (SGPT) 21 U/L (10-68); BILIRUBIN - TOTAL 0.19 mg/dL (0.2-1.3); CALC OSMOLALITY 280 mosm/kg (275-300); CALCIUM 9.4 mg/dL (8.5-10.1); CARBON DIOXIDE 32.3 mmol/L (21.0-32.0); CHLORIDE - SERUM 101 mmol/L (98-107); CREATININE - SERUM 0.8 mg/dL (0.6-1.3); GLUCOSE 102 mg/dL (74-106); POTASSIUM - SERUM 4.2 mmol/L (3.5-5.1); PROTEIN - SERUM 6.9 g/dL (6.4-8.2); SODIUM 140 mmol/L (136-145); UREA NITROGEN 19 mg/dL (7-18); eGFR NON AFRICAN AMERICAN 77 mL/min (90-120)
[2016-12-29 21:59] LABS: PRO BNP 312 pg/mL (0-125); THYROID STIMULATING HORMONE 0.62 uIU/mL (0.36-3.74); VALPROIC ACID (DEPAKOTE) 77.7 ug/mL (50.0-100.0)
[2016-12-29 22:08] LABS: TROPONIN-I < 0.017 ng/mL (0.000-0.060)
[2016-12-29 22:42] LABS: APPEARANCE CLEAR (CLEAR); BILIRUBIN NEGATIVE (NEGATIVE); COLOR YELLOW (YELLOW); GLUCOSE NEGATIVE (NEGATIVE); KETONE NEGATIVE (NEGATIVE); NITRITE NEGATIVE (NEGATIVE); PROTEIN NEGATIVE (NEGATIVE); UROBILINOGEN NORMAL (NORMAL)
--- NOTE | 2016-12-29 23:07 | NUR ---
PT REC'D PT ROOM 230 VIA STRETCHER, PT IN STREET CLOTHES, WALKED TO BED IN ROOM, O2 @ 2LITERS VIA NC, RIGHT FOREARM PIV WITH LEVAQUIN INFUSING, PT AWAKE, ALERT, ORIENTED X 3, RESP RATE 25, DENIES SOB, STATES " I AM BREATHING FAST DUE TO THIS SITUATION", [place], PT DOES NOT WANT TO CHANGE INTO A HOSPITAL GOWN, SHOES REMOVED, PT AGREEABLE TO REMOVE SHIRTS AND A HOSPITAL GOWN PUT ON SO THAT MONITORING EQUIPMENT COULD BE CONNECTED, CM- ST @ 105 WITH OCCASIONAL PVC'S, PT REFUSES TO GIVE AND EMERGENCY CONTACT, SISTER NOTED ON FACESHEET, PPP, BED IN LOW POSITION, CALL LIGHT PROVIDED AND INSTRUCTIONS FOR USE GIVEN, PT INSTRUCTED NOT TO GET OOB WITHOUT ASSISTANCE, VERBALIZES UNDERSTANDING, SR UP X 2, CALL LIGHT IN REACH.
[2016-12-29 23:10] VITALS: BP 139/74
[2016-12-29] MEDS ORDERED: GLUCOPHAGE500 MG PO (23:25)
[2016-12-29] MEDS ORDERED: DESERYL100 MG PO (23:26)
[2016-12-29] MEDS ORDERED: HALDOL DECA100 MG/M1 IM (23:28)
[2016-12-29] MEDS ORDERED: NEURONTIN 300300 MG PO (23:29)
[2016-12-29] MEDS ORDERED: MELATONIN 3 MG1 TAB PO (23:32)
[2016-12-29] MEDS ORDERED: COLACE100 MG PO (23:33)
[2016-12-29] MEDS ORDERED: GUAIFENESI100 MG/5 M PO (23:36)
[2016-12-29] MEDS ORDERED: BANOPHEN25 M1 PO (23:36)
[2016-12-29] MEDS ORDERED: APAP325 MG PO (23:37)
[2016-12-29] MEDS ORDERED: IBUPROFEN200 MG PO (23:37)
[2016-12-29] MEDS ORDERED: MYCOSTATIN 15 G15 GM TOPICAL (23:39)
[2016-12-29 23:50] VITALS: BP 139/74; BMI 29.9
[2016-12-30] VITALS (11 sets, daily range): BP systolic 106–148; BP diastolic 56–98; Ht 167.6 cm; Wt 84.0 kg
--- NOTE | 2016-12-30 00:15 | NUR ---
LEVAQUIN COMPLETE, IV STOPPED AND RIGHT ARM SALINE LOCKED.
--- NOTE | 2016-12-30 01:00 | NUR ---
PT ASSISTED UP X 1 TO BSC, VOIDED 200CC CLEAR YELLOW URINE, ASSISTED WITH PERICARE, NO BREAKDOWN NOTED TO BUTTOCKS, PT ASSISTED BACK TO BED, DENIES NEEDS, CALL LIGHT IN REACH.
--- NOTE | 2016-12-30 03:00 | NUR ---
PT RESTING IN BED QUIETLY, O2 SAT 96%, REMAINS ORIENTED TO TIME AND PLACE, ASKING IF NURSE SLEPT LAST NIGHT, VSS, SR UP X 2, WILL CONT TO MONITOR FOR CHANGES.
--- NOTE | 2016-12-30 04:30 | NUR ---
PT ASSISTED UP TO BSC, VOIDED 200CC CLEAR YELLOW URINE, BACK TO BED WITHOUT DIFFICULTY, PT REQUESTING DR. JONES TO DRINK, OFFERED COLA OR LEMON [place], STATES "NO I WANT A DRJasmin PEPPER".
--- NOTE | 2016-12-30 04:55 | NUR ---
DR. JONES REC'D FROM FILLER WIPER, GIVEN TO PT OVER ICE, PT DENIES NEEDS.
--- NOTE | 2016-12-30 05:15 | NUR ---
PT ASSISTED UP TO BSC, VOIDED 90CC CLEAR YELLOW URINE, PT ASKING IF SHE WOULD HAVE TO STAY TODAY, EXPLAINED TO PT IT WOULD BE UP TO THE DOCTOR, VERBALIZES UNDERSTANDING.
--- NOTE | 2016-12-30 06:08 | NUR ---
PT ASSISTED UP TO BSC, VOIDED 75CC, ASSISTED PT BACK TO BED BUT WISHES TO SET UP ON SIDE OF BED, PT INSTRUCTED NOT TO GET UP WITHOUT CALLING FOR ASSISTANCE, VERBALIZES UNDERSTANDING, BEDSIDE TABLE AND CALL LIGHT IN REACH.
[2016-12-30 09:03] LABS: HEMOGLOBIN A1C 6.8 % (4.8-6.0)
[2016-12-30 09:11] LABS: CHOL - HDL RATIO 5.2 ratio (2.3-4.1); LDL-HDL RATIO 3.6 ratio (1.5-3.5)
--- NOTE | 2016-12-30 10:27 | NUR ---
breakfast tray served and pt feeds self w/o problems. pt using call light. bsc with minimal asst, good balance. dr Saini here this am.
--- NOTE | 2016-12-30 13:26 | NUR ---
PT UP TO BSC SEVERAL TIMES TO VOID AND HAD BM X 2.
--- NOTE | 2016-12-30 15:02 | NUR ---
* Is the patient Alert and Oriented? Yes 0 * PCP Dr. Saini 0 * Preadmission Environment [facility] * Facility Name [facility] 0 * ADLs Partial Dependent 0 * Partial ADLs (Assistance needed) Ambulation 0 * Additional services required to return to the preadmission environment? No 0 * Can the patient safely return to the preadmission environment? Yes 0 * Has this patient been hospitalized within the prior 30 days at any hospital? No Patient Name: CEZAR BIANCHI Admission Status: ER Accout number: [id number] Admission Date: 12-29-2016 : 1955 Admission Diagnosis: Attending: BOGDAN MOYER Current LOS: 1 Anticipated DC Date: 01-01-2017 Planned Disposition: Nursing Facility [facility] Primary Insurance: MEDICAID [place] Discharge Planning Comments: CM met with patient to assess dc plans/needs. Patient states she has lived at [facility] for 11 years. She reports she is independent with ADL's but uses a hand rail when walking down the facility halls. She states from time to time she will use a WC to get around the facility and to go outside to smoke. At dc, she plans to return to [facility]. CM will follow & assist as needed. Sheet Sorter: Kareen Reveles
--- NOTE | 2016-12-30 16:17 | NUR ---
REPORT CALED TO FLOOR NURSE. WILL TRANSPORT BY W/C.
--- NOTE | 2016-12-30 17:15 | NUR ---
PT RECEIVED TO ROOM FROM ICU. PT ALERT AND ORIENTED, RR EVEN AND UNLABORED. VSS, O2 SAT IS 92. PT IS NOT SOB, EXPLAINED TO PT THAT IF SHE BEGINS TO FEEL SOB TO CALL ME AND REPORT IT. PT VERBALIZED UNDERSTANDING. ORIENTED TO ROOM. PT DENIES NEEDS AT THIS TIME. WILL CTM.
--- NOTE | 2016-12-30 17:41 | NUR ---
PLACED TELE ON PT PER ORDERS. PT REQUESTED THAT NO FAMILY OR VISITORS OF ANY KIND ENTER HER ROOM. WILL PLACE SIGN ON DOOR. WILL CTM.
--- NOTE | 2016-12-30 18:39 | NUR ---
PT RESTING QUIETLY, RR EVEN AND UNLABORED. PT DENIES NEEDS AT THIS TIME. WILL GIVE REPORT ON PT CONDTION FOR THE DAY.
--- NOTE | 2016-12-30 20:22 | NUR ---
PATIENT RESTING IN BED WITH LIGHTS OFF AND BLANKETS OVER HER HEAD AT THIS TIME. DISORIENTED TO PERSON AND PLACE. DENIES ANY PAIN OR ANY OTHER NEEDS AT THIS TIME. CALL LIGHT IN REACH, BED IN LOW POSITION.
--- NOTE | 2016-12-31 01:22 | NUR ---
PATIENT HAS A AXILLARY TEMP OF 103.4 F AT 0100 HOURS . GAVE 650 MG TYLENOL . PATIENT IS WARM TO THE TOUCH AND DOES NOT WANT TO MOVE. HER FACE IS PINK AND SKIN IS DRY. BED IN LOW POSITION, BEDSIDE TABLE AND CALL LIGHT IN REACH.
--- NOTE | 2016-12-31 01:31 | NUR ---
PAGED DR. PETERSON TO REPORT THE TEMPERATURE SPIKE OF 103.4 DEGREES F. ALSO TO SEE IF THERE WILL BE AN ORDER TO HAVE MORE BLOOD CULTURES DONE.
--- NOTE | 2016-12-31 01:58 | NUR ---
NO RESPONSE TO PAGE. AT 0145 TEMP WENT DOWN TO 103.1 THEN AT 0200 IT IS 102.3 AXILLARY. PATIENT WAS UP TO THE BATHROOM WITH 2 PERSON ASSIST, AND WAS VERY UNSTABLE ON HER FEET. SKIN IS PINK AND HOT TO THE TOUCH. DENIES ANY NEEDS AT THIS TIME. BED IN LOW POSITION, CALL LIGHT IN REACH.
[2016-12-31 02:05] VITALS: BP 146/63
--- NOTE | 2016-12-31 02:41 | NUR ---
PATIENTS AXILLARY TEMP IS NOW 98.4
--- NOTE | 2016-12-31 04:16 | NUR ---
AXILLARY TEMP IS 98.6.
--- NOTE | 2016-12-31 07:00 | NUR ---
RECEIVED REPORT. ASSUMED CARE OF PATIENT. RESTING WITH EYES CLOSED. EASILY AROUSED. RESP EVEN AND UNLABORED. CALL LIGHT WITHIN REACH. NO DISTRESS.
[2016-12-31 08:00] VITALS: BP 151/59
--- NOTE | 2016-12-31 08:20 | NUR ---
TYLENOL ADMINISTERED FOR ELEVATED TEMP. NO DISTRESS.
--- NOTE | 2016-12-31 08:45 | NUR ---
ASSISTED OOB TO RESTROOM. ASSISTED PATIENT BACK TO BED. CALL LIGHT PLACED WITHIN REACH. NO DISTRESS.
[2016-12-31 12:00] VITALS: BP 135/56
--- NOTE | 2016-12-31 15:21 | NUR ---
PATIENT RESTING IN BED WITH EYES CLOSED. RESP EVEN AND UNLABORED. NO DISTRESS. CALL LIGHT WITHIN REACH.
[2016-12-31 17:10] VITALS: BP 159/88
--- NOTE | 2016-12-31 19:05 | NUR ---
REPORT GIVEN TO ONCOMING NURSE. NO DISTRESS.
--- NOTE | 2016-12-31 19:27 | NUR ---
PT UP IN CHAIR AT BEDSIDE. TRANSFERRED TO BEDSIDE COMMODE X2. BREATHING EVEN AND UNLABORED. DENIES ANY PAIN OR NEEDS AT THIS TIME.
[2016-12-31 20:33] VITALS: BP 116/80
--- NOTE | 2017-01-01 01:31 | NUR ---
PT NOW IN BED RESTING QUEITLY WITH EYES CLOSED. BREATHING EVEN AND UNLABORED. WILL CTM.
[2017-01-01 04:39] VITALS: BP 117/44
--- NOTE | 2017-01-01 04:39 | NUR ---
PT PULLED OUT IV. BLEEDING HAS STOPPED.
[2017-01-01 06:07] LABS: HEMATOCRIT 39.7 % (36.0-48.0); HEMOGLOBIN 12.2 g/dL (12-16); MCH 26.3 pg (26.0-34.0); MCHC 30.7 g/dL (31.0-37.0); MCV 85.7 fL (80.0-100.0); PLATELET COUNT 77 10x3/uL (130-400); RBC 4.63 10x6/uL (4.00-5.40); RDW 15.1 % (11.5-14.5); WBC 5.3 10x3/uL (4.8-10.8)
--- NOTE | 2017-01-01 06:08 | NUR ---
PT STATED SHE DID NOT WANT A NEW IV RIGHT NOW. SHE BECAME FRUSTRATED AND SAID SHE "IS TIRED OF BEING POKED." WILL PASS ON TO DAYSHIFT NURSE.
[2017-01-01 06:38] LABS: ALBUMIN 2.5 g/dL (3.4-5.0); ALKALINE PHOSPHATASE 37 U/L (46-116); ALT (SGPT) 19 U/L (10-68); CALC OSMOLALITY 274 mosm/kg (275-300); CALCIUM 9.6 mg/dL (8.5-10.1); CARBON DIOXIDE 34.2 mmol/L (21.0-32.0); CHLORIDE - SERUM 100 mmol/L (98-107); CREATININE - SERUM 0.7 mg/dL (0.6-1.3); GLUCOSE 91 mg/dL (74-106); POTASSIUM - SERUM 4.1 mmol/L (3.5-5.1); PROTEIN - SERUM 5.8 g/dL (6.4-8.2); SODIUM 138 mmol/L (136-145); UREA NITROGEN 11 mg/dL (7-18); eGFR NON AFRICAN AMERICAN 90 mL/min (90-120)
[2017-01-01 07:10] LABS: EOSINOPHILS 2 % (0-7); LYMPHOCYTES 58 % (15-50); MONOCYTES 11 % (2-11); NEUTROPHILS 23 % (40-80); PLATELET ESTIMATE DECREASED
[2017-01-01 08:24] VITALS: BP 137/56
[2017-01-01 11:55] VITALS: BP 123/47
[2017-01-01 15:27] VITALS: BP 141/52
[2017-01-01 19:00] VITALS: BP 123/53
--- NOTE | 2017-01-01 20:07 | NUR ---
RESUMED CARE OF PT, LYING IN BED RESPIRATIONS EVEN AND UNLABORED ON 3LPM VIA NC. 79 SR ON TELEMETRY. RIGHT HAND SALINE LOCKED. CALL LIGHT IN REACH. WILL CONTINUE TO MONITOR. SEE NURSE ASSESSMENT.
[2017-01-01 23:29] VITALS: BP 113/48
--- NOTE | 2017-01-02 05:32 | NUR ---
FRAME OPENER AT BEDSIDE TO OBTAIN VITALS, WILL CONTINUE WITH PLAN OF CARE. CALL LIGHT IN REACH.
[2017-01-02 05:37] LABS: BASOPHILS 0.3 % (0-2); EOSINOPHILS 0 % (0-7); HEMATOCRIT 41.2 % (36.0-48.0); HEMOGLOBIN 12.9 g/dL (12-16); IMMATURE GRANULOCYTES 2.6 % (0-5); LYMPHOCYTES 33.1 % (15-50); MCH 26.8 pg (26.0-34.0); MCHC 31.3 g/dL (31.0-37.0); MCV 85.5 fL (80.0-100.0); MEAN PLATELET VOLUME 9.6 fL (7.4-10.4); PLATELET COUNT 82 10x3/uL (130-400); RBC 4.82 10x6/uL (4.00-5.40); RDW 14.4 % (11.5-14.5)
[2017-01-02 05:39] LABS: WBC 3.8 10x3/uL (4.8-10.8)
[2017-01-02 05:55] LABS: CALC OSMOLALITY 281 mosm/kg (275-300); CALCIUM 9.4 mg/dL (8.5-10.1); CARBON DIOXIDE 34.9 mmol/L (21.0-32.0); CHLORIDE - SERUM 101 mmol/L (98-107); CREATININE - SERUM 0.6 mg/dL (0.6-1.3); POTASSIUM - SERUM 4.5 mmol/L (3.5-5.1); SODIUM 140 mmol/L (136-145); UREA NITROGEN 10 mg/dL (7-18); eGFR NON AFRICAN AMERICAN > 90 mL/min (90-120)
[2017-01-02 06:03] LABS: GLUCOSE 177 mg/dL (74-106)
--- NOTE | 2017-01-02 07:30 | NUR ---
RECEIVED PT IN BED EYES CLOSED RESP UNLABORED NAD NOTED
[2017-01-02 08:54] VITALS: BP 102/40
--- NOTE | 2017-01-02 10:51 | NUR ---
Patient Name: CEZAR BIANCHI Encounter No: [id number] : 1955 Primary Insurance: MEDICAID [facility] [place] Date: 01-01-2017 Planned Disposition: Nursing Facility [facility] Cert External Planned Provider: [facility] [employer] [facility] MEDICAID BED DCP follow-up note: CM FAXED UPDATE TO [facility] AT [phone]. FOR DISCHARGE, FAX DISCHARGE INFORMATION TO [facility] AT [phone]. NURSE REPORT TO BE CALLED TO [facility] AT [phone]. VAN TRANSPORT TO BE ARRANGED BY [facility]. Fred Catalan, CASE MANAGEMENT
[2017-01-02 12:55] VITALS: BP 106/40
--- NOTE | 2017-01-02 13:12 | NUR ---
Nutrition Follow Up: Pt was asleep x2 attempts to speak with her. Interview deferred at this time. Pt is eating 18% meal avg on a regular diet. +BM 12/30/16. Labs reviewed - glucose elevated. Meds noted including Solu-Medrol. Rec continue current diet. Will send Ensure with meals. RD following.
[2017-01-02 16:01] VITALS: BP 132/58
[2017-01-02 21:58] VITALS: BP 117/47
--- NOTE | 2017-01-03 02:07 | NUR ---
CALL LIGHT IN REACH, WILL CONTINUE WITH PLAN OF CARE. 75 SR ON TELEMETRY
[2017-01-03 02:20] VITALS: BP 92/43
[2017-01-03 05:18] VITALS: BP 91/38
[2017-01-03] MEDS ORDERED: VIBRAMYCIN 100100 MG PO (07:21)
[2017-01-03] MEDS ORDERED: BROVANA15 MCG/2 M INH (07:22)
[2017-01-03] MEDS ORDERED: IPRAT-ALBUT 0.5-3 ML INH (07:22)
[2017-01-03] MEDS ORDERED: PULMICORT0.5 MG/21 UPD (07:23)
[2017-01-03] MEDS ORDERED: FLUTICASONE PRO16 GM NASAL (07:24)
[2017-01-03] MEDS ORDERED: FLORAJEN3 CAPS460 MG PO (07:24)
[2017-01-03] MEDS ORDERED: SYNTHROID25 MCG PO (07:25)
--- NOTE | 2017-01-03 07:30 | NUR ---
ASSESSMENT COMPLETED. TELEMERTY SHOWS SR. O2 AT 3 L/M PER NC. RIGHT HAND IV WITH NS AT KVO. HERE. PT WILL BE DISCHARGED TODAY
[2017-01-03 08:38] VITALS: BP 110/42
--- NOTE | 2017-01-03 08:42 | NUR ---
RESTS IN BED WITH CALL LIGHT IN REACH. NO NEEDS VOICED AT THIS TIME. WILL MONITOR.
--- NOTE | 2017-01-03 10:16 | NUR ---
ORDERS FROM DR PETERSON [facility] CALL PLACED TO THEM AT [phone]. SPOKE WITH ANTONIA. SHE SAID REPORT SHOULD BE CALLED TO [facility] AT THE ABOVE NUMBER AND DISCHARGE COULD BE FAXED TO HER AT [phone]. AFTER SHE HAS INFORMATION SHE WILL CALL BACK TO SCHEDULE A VAN PICK. INFORMATION RELAYED TO [employer] MAINTAINER. PATIENT WILL BE RETURNING TO HER LTC BED.
--- NOTE | 2017-01-03 18:00 | NUR ---
TO [facility] PER WHEELCHAIRPT DISCHARGED,
== END 2017-01-03 14:00 | DRG 190 ==
LOC: D.ER 19:52 → D.M2 22:28 → D.ICU 22:28 → D.M2 12-30 17:15
PROVIDERS: Family Medicine; ADMIT Family Medicine
DX: J44.0 Chronic obstructive pulmonary disease with (acute) lower respiratory infection (principal); J18.9 Pneumonia, unspecified organism; F31.30 Bipolar disorder, current episode depressed, mild or moderate severity, unspecified; E03.9 Hypothyroidism, unspecified; I10 Essential (primary) hypertension; F20.9 Schizophrenia, unspecified; R25.1 Tremor, unspecified; F03.90 Unspecified dementia, unspecified severity, without behavioral disturbance, psychotic disturbance, mood disturbance, and anxiety; E11.9 Type 2 diabetes mellitus without complications; G40.909 Epilepsy, unspecified, not intractable, without status epilepticus; Z74.09 Other reduced mobility; Z72.0 Tobacco use

== ENCOUNTER → 2020-05-17 18:00 | Outpatient (CLI) | payer MEDICARE ==
[2016-12-30 10:28] VITALS: BMI 29.8
[~2020-05-17 18:00] MED LIST changes: +APAP325 MG PO; +BANOPHEN25 M1 PO; +BROVANA15 MCG/2 M INH; +COLACE100 MG PO; +DESERYL100 MG PO; +FLORAJEN3 CAPS460 MG PO; +FLUTICASONE PRO16 GM NASAL; +GLUCOPHAGE500 MG PO; +GUAIFENESI100 MG/5 M PO; +HALDOL DECA100 MG/M1 IM; +IBUPROFEN200 MG PO; +IPRAT-ALBUT 0.5-3 ML INH; +MELATONIN 3 MG1 TAB PO; +MYCOSTATIN 15 G15 GM TOPICAL; +NEURONTIN 300300 MG PO; +PULMICORT0.5 MG/21 UPD; +SYNTHROID25 MCG PO; +VIBRAMYCIN 100100 MG PO
== END | disposition home or self-care (01) ==
LOC: D.LABREF 18:00
PROVIDERS: ATTEND Family Medicine
DX: Z79.899 Other long term (current) drug therapy (principal)

== ENCOUNTER → 2020-07-20 18:03 | Outpatient (CLI) | payer MEDICARE ==
[2016-12-30 10:28] VITALS: BMI 29.8
[2020-07-20 18:23] LABS: BASOPHILS 0.2 % (0-2); EOSINOPHILS 0.9 % (0-7); HEMATOCRIT 44.2 % (36.0-48.0); HEMOGLOBIN 13.9 g/dL (12-16); LYMPHOCYTES 42.3 % (15-50); MCHC 31.4 g/dL (31.0-37.0); MCV 79.4 fL (80.0-100.0); MEAN PLATELET VOLUME 8.1 fL (7.4-10.4); MONOCYTES 6.2 % (2-11); NEUTROPHILS 50.4 % (40-80); PLATELET COUNT 208 10x3/uL (130-400); RBC 5.57 10x6/uL (4.00-5.40); RDW 17.3 % (11.5-14.5); WBC 6.9 10x3/uL (4.8-10.8)
[2020-07-20 18:44] LABS: ALBUMIN 3.5 g/dL (3.4-5.0); ALKALINE PHOSPHATASE 44 U/L (30-120); ALT (SGPT) 26 U/L (10-68); BILIRUBIN - TOTAL 0.19 mg/dL (0.2-1.3); CALC OSMOLALITY 289 mosm/kg (275-300); CALCIUM 9.5 mg/dL (8.5-10.1); CARBON DIOXIDE 31.2 mmol/L (21.0-32.0); CHLORIDE - SERUM 105 mmol/L (98-107); CHOL - HDL RATIO 3.9 ratio (2.3-4.1); CHOLESTEROL, TOTAL 181 mg/dL (0-200); CREATININE - SERUM 0.8 mg/dL (0.6-1.3); HDL CHOLESTEROL 47 mg/dL (32-96); LDL CHOLESTEROL 108 mg/dL (0-100); LDL-HDL RATIO 2.3 ratio (1.5-3.5); POTASSIUM - SERUM 4.6 mmol/L (3.5-5.1); PROTEIN - SERUM 6.5 g/dL (6.4-8.2); SODIUM 145 mmol/L (136-145); THYROID STIMULATING HORMONE 1.03 uIU/mL (0.36-3.74); TRIGLYCERIDE 132 mg/dL (30-200); UREA NITROGEN 18 mg/dL (7-18); VALPROIC ACID (DEPAKOTE) 79.8 ug/mL (50.0-100.0); eGFR NON AFRICAN AMERICAN 76 mL/min (90-120)
[2020-07-20 18:47] LABS: GLUCOSE 82 mg/dL (74-106)
== END | disposition home or self-care (01) ==
LOC: D.LABREF 18:03
PROVIDERS: ATTEND Family Medicine
DX: E11.9 Type 2 diabetes mellitus without complications (principal); Z79.899 Other long term (current) drug therapy

== ENCOUNTER → 2020-07-21 18:29 | Outpatient (CLI) | payer MEDICARE ==
[2016-12-30 10:28] VITALS: BMI 29.8
== END | disposition home or self-care (01) ==
LOC: D.LABREF 18:29
PROVIDERS: ATTEND Family Medicine
DX: E11.9 Type 2 diabetes mellitus without complications (principal)